=== PATIENT | male | born 1960 | race Caucasian/White ===

== ENCOUNTER 2018-10-26 15:21 | Emergency (ER) | payer OTHER ==
--- NOTE | 2018-10-26 15:59 | ERPHSYRPT ---
- History of Present Illness Time Seen by Provider: 10/26/18 15:45 Historian: patient Exam Limitations: clinical condition Patient Subjective Stated Complaint: abdominal pain x 4 days. no pain on palpation but is constandt. denies vomiting or diarrhea but has had nausea.. fever 2 days ago hx diverticulitis Triage Nursing Assessment: alert and orioented with c/o llq pain x 4 days. denies vomiting. denies urinary sx. abdomen soft no increasing pain on palpation. states was sweating 2 days ago.. has hx diverticulitis and colon resection. Physician History: PATIENT WITH A HISTORY OF DIVERTICULITIS, TYPE 2 DIABETES, MYOCARDIAL INFARCTION WITH STENT INSERTION COMPLAINS OF LEFT LOWER ABDOMINAL PAINS X 1 WEEK , UNSURE OF FEVER OR CHILLS. DENIES NAUSEA, EMESIS, DIARRHEA OR URINARY SYMPTOMS. Timing/Duration: week(s) Activities at Onset: none Quality: cramping Abdominal Pain Onset Location: LLQ Pain Radiation: no radiation Severity of Pain-Max: moderate Severity of Pain-Current: mild Modifying Factors: Improves With: nothing Associated Symptoms: loss of appetite Previous symptoms: same symptoms as today Allergies/Adverse Reactions: Penicillins Allergy (Verified 06/05/15 09:58) Home Medications: ALPRAZolam [Xanax 0.5 mg] 0.5 mg PO QHS 06/05/15 [History] Citalopram Hydrobromide 20 mg* [ceLEXa 20 MG] 20 mg PO DAILY 06/05/15 [ History] Dexlansoprazole [Dexilant] 60 mg PO DAILY 06/05/15 [History] Metoclopramide HCl [Reglan] 10 mg PO BID 06/05/15 [History] Testosterone Cypionate [Depo-Testosterone] 200 mg IM UD 06/05/15 [History] clonazePAM [Klonopin] 1 mg PO BID 06/05/15 [History] - Review of Systems Constitutional: No Fever, No Chills Eyes: No Symptoms Ears, Nose, & Throat: No Symptoms Respiratory: No Symptoms, No Cough, No Dyspnea Cardiac: No Symptoms, No Chest Pain, No Edema, No Syncope Abdominal/Gastrointestinal: Abdominal Pain, No Nausea, No Vomiting, No Diarrhea Genitourinary Symptoms: No Symptoms, No Dysuria Musculoskeletal: No Symptoms, No Back Pain, No Neck Pain Skin: No Symptoms, No Rash Neurological: No Dizziness, No Focal Weakness, No Sensory Changes Psychological: No Symptoms Endocrine: No Symptoms All Other Systems: Reviewed and Negative - Past Medical History Pertinent Past Medical History: Yes Neurological History: No Pertinent History ENT History: No Pertinent History Cardiac History: No Pertinent History Respiratory History: No Pertinent History, Sleep Apnea Endocrine Medical History: No Pertinent History Musculoskeletal History: No Pertinent History GI Medical History: Diverticulitis, GERD History: No Pertinent History Psycho-Social History: Anxiety, Depression Male Reproductive Disorders: No Pertinent History - Past Surgical History Past Surgical History: Yes Neuro Surgical History: No Pertinent History Cardiac: No Pertinent History Respiratory: No Pertinent History Gastrointestinal: Colon Resection, Hernia Repair Genitourinary: No Pertinent History Musculoskeletal: No Pertinent History Male Surgical History: No Pertinent History - Social History Smoking Status: Never smoker Exposure to second hand smoke: No Drug Use: none Patient Lives Alone: No - Nursing Vital Signs Nursing Vital Signs: Initial Vital Signs Temperature 98.3 F 10/26/18 15:34 Pulse Rate 72 10/26/18 15:34 Respiratory Rate 18 10/26/18 15:34 Blood Pressure 140/88 10/26/18 15:34 O2 Sat by Pulse Oximetry 95 10/26/18 15:34 Pain Scale Pain Intensity 7 - Physical Exam General Appearance: no apparent distress, alert Eye Exam: PERRL/EOMI, eyes nml inspection Ears, Nose, Throat Exam: normal ENT inspection, pharynx normal, moist mucous membranes Neck Exam: normal inspection, non-tender, supple, full range of motion Respiratory Exam: normal breath sounds, lungs clear, No respiratory distress Cardiovascular Exam: regular rate/rhythm, normal heart sounds Gastrointestinal/Abdomen Exam: soft, normal bowel sounds, No tenderness (THERE IS MODERATE LLQ TENDERNESS, NO GUARDING OR REBOUND TENDERNESS), No mass Back Exam: normal inspection, normal range of motion, No CVA tenderness, No vertebral tenderness Extremity Exam: normal inspection, normal range of motion, pelvis stable Neurologic Exam: alert, oriented x 3, cooperative, normal mood/affect, nml cerebellar function, sensation nml, No motor deficits Skin Exam: normal color, warm, dry SpO2 Interpretation: normal SpO2: 95 - CT Exams Abdomen/Pelvis CT Interpretation: Tele-radiologist Report (SMALL FAT CONTAINING RIGHT INGUINAL HERNIA INCREASED IN SIZE SINCE 2014, SCATTERED COLONIC DIVERTICULOSIS WITHOUT EVIDENCE OF DIVERTICULITIS) Ordered Tests: Active Orders 24 hr Category Date Time Status IV Insertion STAT Care 10/26/18 15:50 Active ABDOMEN AND PELVIS W CONTRAST [CT] Stat Exams 10/26/18 15:51 Taken BLOOD CULTURE Stat Lab 10/26/18 16:20 Received BMP Stat Lab 10/26/18 16:20 Completed CBC W DIFF Stat Lab 10/26/18 16:20 Completed UA W/RFX UR CULTURE Stat Lab 10/26/18 18:20 Completed Medication Summary Generic Name Dose Route Start Last Admin Trade Name Freq PRN Reason Stop Dose Admin Sodium Chloride 1,000 mls @ 200 mls/hr 10/26/18 16:00 10/26/18 16:51 Sodium Chloride 0.9% 1000 Ml IV 11/25/18 15:59 200 mls/hr .Q5H WILBUR Administration Discontinued Medications Generic Name Dose Route Start Last Admin Trade Name Freq PRN Reason Stop Dose Admin Sodium Chloride 1,000 mls @ 100 mls/hr 10/26/18 16:00 Sodium Chloride 0.9% 1000 Ml IV 11/25/18 15:59 .Q10H WILBUR Lab/Rad Data: Laboratory Result Diagrams 10/26/18 16:20 10/26/18 16:20 Laboratory Results 10/26/18 10/26/18 10/26/18 Range/Units 18:20 16:20 16:20 WBC 6.1 (4.0-10.5) K/mm3 RBC 4.76 (4.1-5.6) M/mm3 Hgb 15.1 (12.5-18.0) gm/dl Hct 44.5 (42-50) % MCV 93.5 (78-100) fl MCH 31.7 (26-32) pg MCHC 33.9 (32-36) g/dl RDW 12.2 (11.5-14.0) % Plt Count 195 (150-450) K/mm3 MPV 10.1 H (6-9.5) fl Gran % 60.1 (36.0-66.0) % Eos # (Auto) 0.12 (0-0.5) Absolute Lymphs (auto) 1.71 (1.0-4.6) Absolute Monos (auto) 0.55 (0.0-1.3) Lymphocytes % 27.9 (24.0-44.0) % Monocytes % 9.0 (0.0-12.0) % Eosinophils % 2.0 (0.00-5.0) % Basophils % 1.0 (0.0-0.4) % Absolute Granulocytes 3.68 (1.4-6.9) Basophils # 0.06 (0-0.4) Sodium 142 (137-145) mmol/L Potassium 3.8 (3.5-5.1) mmol/L Chloride 107 (98-107) mmol/L Carbon Dioxide 28 (22-30) mmol/L Anion Gap 10.5 (5-15) MEQ/L BUN 20 (9-20) mg/dL Creatinine 0.87 (0.66-1.25) mg/dL Estimated GFR > 60.0 ML/MIN Glucose 125 H (74-106) mg/dL Calcium 9.7 (8.4-10.2) mg/dL Urine Color YELLOW (YELLOW) Urine Appearance CLOUDY (CLEAR) Urine pH 8.0 (5-6) Ur Specific [place] 1.011 (1.005-1.025) Urine Protein NEGATIVE (Negative) Urine Ketones NEGATIVE (NEGATIVE) Urine Blood NEGATIVE (0-5) Adams/ul Urine Nitrite NEGATIVE (NEGATIVE) Urine Bilirubin NEGATIVE (NEGATIVE) Urine Urobilinogen NEGATIVE (0-1) mg/dL Ur Leukocyte Esterase NEGATIVE (NEGATIVE) Urine WBC (Auto) NONE SEEN (0-5) /HPF Urine RBC (Auto) NONE SEEN (0-2) /HPF U Epithel Cells (Auto) NONE (FEW) /HPF Urine Bacteria (Auto) NONE SEEN (NEGATIVE) /HPF Amorphous Crystals MANY (NEGATIVE) /HPF Urine Culture Reflexed NO (NO) Urine Glucose NEGATIVE (NEGATIVE) mg/dL - Progress Progress Note: 10/26/18 15:58 IV NORMAL SALINE 200ML/HR, REFUSES ANALGESICS Counseled pt/family regarding: diagnosis, need for follow-up, rad results - Departure Time of Disposition: 18:45 Departure Disposition: Home Clinical Impression: ABDOMINAL PAIN Condition: Stable Critical Care Time: No Referrals: DOCTOR,NO FAMILY [Primary Care Provider] - Additional Instructions: TYLENOL OR MOTRIN NEEDED FOR PAIN. CONSULT YOUR PRIMARY CARE PROVIDER FOR EVALUATION, REFERRAL FOR COLONOSCOPY. RETURN TO EMERGENCY FOR INCREASING PAIN, ONSET OF FEVER, CHILLS OR DIARRHEA.
[2018-10-26] MEDS ORDERED: Sodium Chloride 0.9% 1000 ML 1,000 ML IV SCH ×2 (16:00)
[2018-10-26 16:31] LABS: Basophil (Absolute #) 0.06 (0-0.4); Eosinophil (Absolute #) 0.12 (0-0.5); Granulocyte Absolute (ANC) 3.68 (1.4-6.9); Granulocytes % 60.1 % (36.0-66.0); Hematocrit 44.5 % (42-50); Hemoglobin 15.1 gm/dl (12.5-18.0); Lymphocyte (Absolute #) 1.71 (1.0-4.6); Lymphocytes % 27.9 % (24.0-44.0); Mean Cell Volume 93.5 fl (78-100); Mean Corpuscular Hemoglobin 31.7 pg (26-32); Mean Corpuscular Hgb Concent. 33.9 g/dl (32-36); Mean Platelet Volume 10.1 fl (6-9.5); Monocyte (Absolute #) 0.55 (0.0-1.3); Platelet Count 195 K/mm3 (150-450); Red Blood Count 4.76 M/mm3 (4.1-5.6); Red Cell Distribution Width 12.2 % (11.5-14.0); White Blood Count 6.1 K/mm3 (4.0-10.5)
[2018-10-26 16:44] LABS: ANION GAP 10.5 MEQ/L (5-15); BLOOD UREA NITROGEN 20 mg/dL (9-20); CHLORIDE 107 mmol/L (98-107); Calcium 9.7 mg/dL (8.4-10.2); Carbon Dioxide 28 mmol/L (22-30); Creatinine 1 0.87 mg/dL (0.66-1.25); Glucose 125 mg/dL (74-106); Potassium 3.8 mmol/L (3.5-5.1); SODIUM 142 mmol/L (137-145)
[2018-10-26] MEDS ORDERED: Sodium Chloride 0.9% 1000 ML 1,000 ML ONE (16:49)
[2018-10-26 18:34] LABS: Amourphous Crystal MANY /HPF (NEGATIVE); Appearance CLOUDY (CLEAR); Bacteria NONE SEEN /HPF (NEGATIVE); Bilirubin NEGATIVE (NEGATIVE); Blood NEGATIVE Ery/ul (0-5); Glucose NEGATIVE (NEGATIVE); Ketones NEGATIVE (NEGATIVE); Leukocyte Esterase NEGATIVE (NEGATIVE); Nitrite NEGATIVE (NEGATIVE); Protein,Urine Dip NEGATIVE (Negative); RBC NONE SEEN /HPF (0-2); Specific Gravity 1.011 (1.005-1.025); Urobilinogen NEGATIVE mg/dL (0-1); WBC NONE SEEN /HPF (0-5)
[2018-10-26 19:14] VITALS: BP 132/78; PULSE 87; O2SAT 99
--- NOTE | 2018-10-26 22:21 | XRAY ---
Indication: Abdomen pain 1 week. History diverticulitis. Multiple contiguous axial images obtained through the abdomen and pelvis using 80 cc Isovue 370 contrast only. Comparison: June 02, 2015. Lung bases demonstrates minimal dependent atelectasis. No infiltrate or effusion. Heart is not enlarged. Noncontrasted stomach and bowel loops appear nonobstructed. Stable descending duodenal diverticulum. Normal appendix. Stable left hemicolon diverticulosis without diverticulitis. Intact sigmoid anastomosis. No free fluid/air. Stable hepatic cysts. Remaining liver, gallbladder, pancreas, spleen, adrenal glands, kidneys, ureters, and bladder appear unremarkable. There remains mild aortoiliac calcifications. No AAA or pathological retroperitoneal lymphadenopathy. Osseous structures intact again with mild degenerative changes throughout the spine. Slightly enlarging small fatty right inguinal hernia. Impression: 1. Stable hepatic cysts, duodenal diverticulum, colonic diverticulosis, and hepatic cysts. 2. Slightly enlarging small fatty right inguinal hernia. 3. Remaining CT abdomen/pelvis with contrast exam is negative. Comment: Preliminary interpretation was made by [facility]. No critical discrepancy. CTDI 19.13
== END 2018-10-26 19:16 | disposition home or self-care (01) ==
LOC: ED 15:21
DX: R10.9 Unspecified abdominal pain (principal); G47.30 Sleep apnea, unspecified; K21.9 Gastro-esophageal reflux disease without esophagitis; F41.9 Anxiety disorder, unspecified; F32.9 Major depressive disorder, single episode, unspecified; Z90.49 Acquired absence of other specified parts of digestive tract; E11.9 Type 2 diabetes mellitus without complications; I25.2 Old myocardial infarction
CPT/HCPCS: 36000; 36415; 74177; 80048; 81001; 85025; 87040; 96360; 99284; Q9967

== ENCOUNTER 2018-11-15 09:45 | Day surgery (SDC) | payer OTHER ==
--- NOTE | 2018-11-14 14:30 | HP ---
REPORT DICTATED AND TRANSCRIBED AT [facility] ON 11/13/2018, FAXED TO [facility] ON 11/14/2018. DATE OF SURGERY: 11/15/2018 ADMISSION DIAGNOSIS: Right inguinal hernia. ANTICIPATED PROCEDURE: Right inguinal hernia with mesh. HISTORY OF PRESENT ILLNESS: Patient has moderate-sized symptomatic right inguinal hernia. PAST MEDICAL HISTORY: ALLERGIES: PENICILLIN. MEDICATIONS: Clonazepam, Fenofibrate, paroxetine. PAST SURGICAL HISTORY: Diverticulitis. Hernia surgery. SOCIAL HISTORY: Negative. FAMILY HISTORY: Negative. REVIEW OF SYSTEMS: CVS: Controlled hypertension. PULMONARY: Negative. GI: Per the present illness. : Negative. PHYSICAL EXAMINATION: VITAL SIGNS: Normal. CHEST: Clear. COR: Regular. ABDOMEN: Right inguinal hernia. IMPRESSION: Symptomatic right inguinal hernia. PLAN: Repair.
[~2018-11-15 09:45] MED LIST: CLINDAMYCIN-D5W 900 MG/50 ML*** 900 MG/50 ML BAG IV STA; Lactated Ringers 1,000 ML IV ONE; Lactated Ringers 1,000 ML IV SCH; Sensorcaine 0.25% 10 ML ONE
[2018-11-15] MEDS ORDERED: Zofran 4 MG/2 ML VIAL IV ONE (09:46)
[2018-11-15] MEDS ORDERED: Versed 2 MG/2 ML Injection IV ONE (09:46)
[2018-11-15] MEDS ORDERED: Zemuron 100 MG/10 ML IV ONE (09:46)
[2018-11-15] MEDS ORDERED: Decadron 4 MG INJ IV ONE (09:46)
[2018-11-15] MEDS ORDERED: BRIDION 200MG/2ML IV ONE (09:46)
[2018-11-15] MEDS ORDERED: TORAdol 30 mg Injection IV ONE (09:46)
[2018-11-15] MEDS ORDERED: SUBLIMAZE 250 MCG/5 ML IV ONE (09:46)
[2018-11-15] MEDS ORDERED: DIPRIVAN 200 MG/20 ML IV ONE (09:46)
[2018-11-15] MEDS ORDERED: Lactated Ringers 1,000 ML IV ONE (12:52)
[2018-11-15] MEDS ORDERED: Cleocin Phosphate IV 600 MG/4 ML ONE (14:34)
[2018-11-15] MEDS ORDERED: MORPHINE SULFATE 10 MG/ML ONE (15:50)
[2018-11-15] MEDS ORDERED: SUBLIMAZE 100 MCG/2 ML ONE (15:51)
[2018-11-15] MEDS ORDERED: Zofran 4 MG/2 ML VIAL ONE (15:54)
[2018-11-15 17:11] VITALS: BP 133/86; PULSE 83; O2SAT 92
--- NOTE | 2018-11-16 08:35 | OP ---
SURGERY DATE/TIME: 11/15/2018 1420 PREOPERATIVE DIAGNOSES: 1) Right inguinal hernia. 2) Epigastric pain secondary to grade II/III gastroesophageal reflux disease. 3) Screening colonoscopy demonstrating a previous resection otherwise satisfactory. POSTOPERATIVE DIAGNOSES: 1) Right inguinal hernia. 2) Epigastric pain secondary to grade II/III gastroesophageal reflux disease. 3) Screening colonoscopy demonstrating a previous resection otherwise satisfactory. PROCEDURES: 1) Right inguinal herniorrhaphy with mesh. 2) Colonoscopy complete to cecum for screening. 3) EGD. SURGEON: Guido Bowen M.D. ANESTHESIA: General. COMPLICATIONS: None. CONDITION: Stable. INDICATION: A patient requiring evaluation. DESCRIPTION OF PROCEDURE: Taken to surgery. General anesthetic. Routine prep and drape. Kidney rest was placed. 0.25% Marcaine. Curvilinear incision. Time out had been performed. External oblique opened. A 3 inch indirect hernia sac, 3 inch lipoma. The lipoma tied off with 2-0 Vicryl. The hernia sac tied off with 0 Prolene. There was no sliding component. Floor reinforced with a 1x4 already pre-holed mesh which was placed and secured with 0 Prolene throughout. The internal ring was one clamp tight. Repair looked excellent. The ilioinguinal nerve was kept with cord and the iliohypogastric was left on the floor. The external oblique closed with 0 Vicryl. Neville fascia closed with 2-0 Vicryl. Skin closed with 4-0 Vicryl. Steri-Strips applied. Sterile dressing applied. The gastroscope was placed. The esophagus normal down to gastroesophageal junction. There was a rim of esophagitis grade II and there was a little bit of slightly pronounced streaks at the upper edge. Fundus, body, antrum was normal. Pylorus normal. Duodenal bulb normal. Second portion normal. Scope withdrawn looped upon itself. No hiatal hernia. Scope withdrawn. IMPRESSION: Grade II/III gastroesophageal reflux disease. Anal digital examination satisfactory. Scope introduced. The anastomosis was at 24 cm. It was [id number]. It was normal. Scope advanced up to the cecum. Base of cecum, trifurcation, ileocecal valve and appendiceal orifice normal. Ascending, hepatic, transverse there was some scattered diverticulum in the descending colon and towards the anastomosis. Nothing symptomatic. No mucosal lesions were noted. The patient tolerated the procedure satisfactorily. PLAN: Follow up in five years on the colon.
== END 2018-11-15 17:30 | disposition home or self-care (01) ==
LOC: SDC 09:45
PROVIDERS: ATTEND Surgery
DX: K40.90 Unilateral inguinal hernia, without obstruction or gangrene, not specified as recurrent (principal); K21.9 Gastro-esophageal reflux disease without esophagitis; Z12.11 Encounter for screening for malignant neoplasm of colon; R10.13 Epigastric pain; I10 Essential (primary) hypertension
CPT/HCPCS: J1100; J1885; J2250; J2270; J2405; J2704; J3010

== ENCOUNTER 2019-08-22 09:10 | Day surgery (SDC) | payer OTHER ==
--- NOTE | 2019-08-22 07:40 | HP ---
AMENDED REPORT: DATE OF SURGERY: 08/22/2019 HISTORY OF PRESENT ILLNESS: Lesion left neck, mid neck and mid back. ANTICIPATED PROCEDURE: Excision of these three lesions. PAST MEDICAL HISTORY: ALLERGIES: MULTIPLE. MEDICATIONS: Multiple. PAST SURGICAL HISTORY: Hernia surgery. Diverticulitis. SOCIAL HISTORY: Negative. FAMILY HISTORY: Negative. REVIEW OF SYSTEMS: CVS: Positive hypertension. PULMONARY: Negative. PHYSICAL EXAMINATION: VITAL SIGNS: Normal. CHEST: Clear. COR: Regular. IMPRESSION: Three atypical lesions. PLAN: Excision.
[~2019-08-22 09:10] MED LIST changes: -CLINDAMYCIN-D5W 900 MG/50 ML*** 900 MG/50 ML BAG IV STA; -Lactated Ringers 1,000 ML IV ONE; -Lactated Ringers 1,000 ML IV SCH; -Sensorcaine 0.25% 10 ML ONE; +Sodium Chloride 0.9% 1000 ML 1,000 ML IV SCH; +Sodium Chloride 0.9% 1000 ML 1,000 ML ONE; +XYLOCAINE 1% HCL 20 ML MDV ONE
[2019-08-22] MEDS ORDERED: BACIGUENT 30 GM ONE (12:55)
[2019-08-22 13:41] VITALS: O2SAT 94
[2019-08-22 13:44] VITALS: BP 151/96; PULSE 65
--- NOTE | 2019-08-22 14:41 | OP ---
SURGERY DATE/TIME: 08/22/2019 1232 PREOPERATIVE DIAGNOSIS: A 1 cm cyst posterior neck, 1 cm cyst upper mid back, 5 mm skin tag lesion left neck. POSTOPERATIVE DIAGNOSIS: A 1 cm cyst posterior neck, 1 cm cyst upper mid back, 5 mm skin tag lesion left neck. PROCEDURE: Excision and closure of these three lesions. SURGEON: Guido Bowen M.D. ANESTHESIA: Local. COMPLICATIONS: None. CONDITION: Stable. INDICATION: A patient requiring removal of these three lesions. They were marked preoperatively. DESCRIPTION OF PROCEDURE: Taken to surgery. Routine prep and drape. Time out performed. Elliptical excision of the neck lesion sebaceous cyst, elliptical excision of the upper back lesion sebaceous cyst and elliptical excision of the skin tag/skin lesion left lower neck. Closed with various sutures. Sterile dressing and ointment applied. The patient tolerated the procedure satisfactorily. Return to the office in two weeks.
== END 2019-08-22 13:36 | disposition home or self-care (01) ==
LOC: SDC 09:10
PROVIDERS: ATTEND Surgery
DX: L72.0 Epidermal cyst (principal); L73.9 Follicular disorder, unspecified; L72.8 Other follicular cysts of the skin and subcutaneous tissue; I10 Essential (primary) hypertension; Z79.899 Other long term (current) drug therapy
CPT/HCPCS: 88304; 88305; A9270-GY

== ENCOUNTER 2020-02-06 07:40 | Day surgery (SDC) | payer OTHER ==
--- NOTE | 2020-01-31 15:29 | HP ---
DATE OF SURGERY: 02/06/2020 HISTORY OF PRESENT ILLNESS: The patient is a 59 year-old male who presented to the office with complaints of one month history of left-sided abdominal pain and nausea. Reports going to his primary care physician and taking some antibiotics. Last colonoscopy was about a year ago. He had some scattered diverticulum and descending colon diverticulum. It was recommended that he follow up in five years for next colonoscopy. Today, he denies any rectal bleeding or change in bowel habits. PAST MEDICAL HISTORY: Depression. Reflux. Anxiety. Arthritis. PAST SURGICAL HISTORY: Colon resection for diverticulitis. Excision of skin lesions. MEDICATIONS: Clonazepam. Paroxetine. Tylenol. ALLERGIES: PENICILLIN. TAPE. LATEX. FAMILY HISTORY: Negative. SOCIAL HISTORY: Negative. REVIEW OF SYSTEMS: CONSTITUTIONAL: Denies fever or chills. CHEST: Denies shortness of breath or cough. CVS: Denies chest pain. ABDOMEN: Reports abdominal pain. Denies nausea, vomiting, rectal bleeding, diarrhea or constipation. : Denies dysuria or hematuria. EXTREMITIES: Denies swelling. PHYSICAL EXAMINATION: GENERAL: No acute distress. HEENT: No jaundice. Oral mucosa moist. NECK: No JVD. CHEST: Nonlabored. No shortness of breath. ABDOMEN: Soft, mildly tender in the lower quadrant, nondistended. EXTREMITIES: No edema. INTEGUMENTARY: Warm, pink, no rash. NEUROLOGIC: Awake, alert, oriented. PSYCHIATRIC: Appropriate mood and affect. ASSESSMENT: The patient has had history of diverticulitis with resection. We did do a CT scan of the abdomen and pelvis. It was negative for any concerning active inflammation. We will proceed with colonoscopy for history of diverticulitis. PLAN: Colonoscopy with Dr. Guido Bowen. As dictated by Chelsea Mancini NP.
[2020-02-06] MEDS ORDERED: Lactated Ringers 1,000 ML IV ONE (08:04)
[2020-02-06] MEDS ORDERED: Lactated Ringers 1,000 ML IV SCH (08:30)
[2020-02-06] MEDS ORDERED: DIPRIVAN 200 MG/20 ML IV ONE (10:49)
[2020-02-06 13:01] VITALS: O2SAT 97
[2020-02-06 13:04] VITALS: BP 139/79; PULSE 60
--- NOTE | 2020-02-06 14:00 | OP ---
SURGERY DATE/TIME: 02/06/2020 1034 PREOPERATIVE DIAGNOSIS: Lower abdominal discomfort. No recent endoscopic exam. Previous history of diverticulosis and resection. POSTOPERATIVE DIAGNOSIS: Lower abdominal discomfort. No recent endoscopic exam. Previous history of diverticulosis and resection. PROCEDURE: Colonoscopy complete to cecum. SURGEON: Guido Bowen M.D. ANESTHESIA: MAC. COMPLICATIONS: None. CONDITION: Stable. FINDINGS: 1) Moderate residual diverticulosis. 2) Normal anastomosis. INDICATION: The patient has some lower abdominal discomfort. He did have a CT scan show diverticulosis. He has not had recent endoscopic examination. DESCRIPTION OF PROCEDURE: He is taken to endoscopy. Left lateral decubitus position. MAC sedation provided. Anal digital examination satisfactory. Prostate satisfactory. Rectum satisfactory. Prostate visually satisfactory, smooth, slightly elevated. The resection site anastomosis normal. There was minimal blind end. The functional end cannulated. There was moderate residual diverticulosis of the descending colon. Transverse colon was normal. Hepatic flexure normal. Ascending colon normal. Ileocecal valve, base of the cecum and the appendiceal orifice all normal. A very good visualization was present and excellent prep was present on circumferential withdrawal. No mucosal lesions were noted. PLAN: Follow up in five years. I think his residual diverticulosis clearly accounts for his intermittent abdominal discomfort and he does have a negative CT of the abdomen otherwise.
== END 2020-02-06 12:00 | disposition home or self-care (01) ==
LOC: SDC 07:40
PROVIDERS: ATTEND Surgery
DX: K57.30 Diverticulosis of large intestine without perforation or abscess without bleeding (principal); R11.0 Nausea; Z90.49 Acquired absence of other specified parts of digestive tract; Z87.19 Personal history of other diseases of the digestive system; Z79.899 Other long term (current) drug therapy
CPT/HCPCS: J2704

== ENCOUNTER 2022-03-24 06:33 | Day surgery (SDC) | payer OTHER ==
--- NOTE | 2022-03-21 13:53 | HP ---
DATE OF SURGERY: 03/24/2022 HISTORY OF PRESENT ILLNESS: The patient is a 61-year-old male presents with complaints of dysphagia. He reports that it is cervical. He states that he has pills that get stuck. He states he has lots of sinus trouble with drainage. His last EGD was July 2019 when he had grade 2 gastroesophageal reflux disease. He reports that his ENT, Dr. Nella Gonzalez, did a nose scope that I believe was satisfactory. PAST MEDICAL HISTORY: Depression, anxiety, gastroesophageal reflux disease, hypertension. PAST SURGICAL HISTORY: Sigmoid colectomy. Bilateral inguinal hernia repair. ALLERGIES: PENICILLIN. LATEX. MEDICATIONS: Venlafaxine, amlodipine, Zyrtec, omeprazole, trazodone, alprazolam, Pepcid, ibuprofen, Tylenol, Trelegy. FAMILY HISTORY: None reported. SOCIAL HISTORY: None reported. REVIEW OF SYSTEMS: CONSTITUTIONAL: Denies fever or chills. CHEST: Denies shortness of breath. CVS: Denies chest pain. ABDOMEN: Denies abdominal pain. PHYSICAL EXAMINATION: GENERAL: No acute distress. CHEST: Nonlabored. No shortness of breath. CVS: Regular rate and rhythm. ABDOMEN: Soft. IMPRESSION: Dysphagia. PLAN: EGD with with Dr. Guido Bowen. As dictated by Chelsea Mancini NP.
[2022-03-24] MEDS ORDERED: Lactated Ringers 1,000 ML IV SCH (07:30)
[2022-03-24] MEDS ORDERED: DIPRIVAN 200 MG/20 ML IV ONE ×2 (09:20→09:30)
[2022-03-24 10:09] VITALS: BP 119/78; PULSE 66; O2SAT 96
--- NOTE | 2022-03-24 11:23 | OP ---
SURGERY DATE/TIME: 03/24/2022 0919 PREOPERATIVE DIAGNOSIS: Recent dysphagia. POSTOPERATIVE DIAGNOSES: 1) The patient has a wisp of esophagitis grade II. It probably has been exacerbated here in the last couple of months but is looking quite reasonable at this time. 2) A 1 inch hiatal hernia. PROCEDURE: EGD. SURGEON: Guido Bowen M.D. ENGINEERING SCIENTIST: Matthew Sanchez M.D. [facility]. ANESTHESIA: MAC. COMPLICATIONS: None. CONDITION: Stable. INDICATION: The patient has dysphagia needing upper GI followed by esophagogram. He is having trouble swallowing pills. He is subsequently taking his pills with applesauce and is doing much better. He is on two medications. He is basically feeling good at this time. DESCRIPTION OF PROCEDURE: He was taken to endoscopy. Left lateral decubitus position. Pharyngoesophageal junction cannulated. Esophagus normal down to gastroesophageal junction. There was a 1 cm rim of very light esophagitis. There was a 1 inch hiatal hernia. Fundus, body, antrum normal. Pylorus normal. Keyhole view normal. Duodenal bulb normal. Second portion normal. The scope looped upon itself. A 1 inch hiatal hernia. Scope withdrawn. There was reasonable motility in the esophagus. There was no suggestion of any blockage. The hiatal hernia was small. The reflux was under control. IMPRESSION: I believe the whole last couple of months has been consistent with reflux. It probably just got a little exacerbated. It did get calmed down. He is doing better. I would not suggest any changes in his regimen. I would continue to make sure not eating within three or four hours of laying down. He can return to the office PRN.
== END 2022-03-24 10:15 | disposition home or self-care (01) ==
LOC: SDC 06:33
PROVIDERS: ATTEND Surgery
DX: K20.90 Esophagitis, unspecified without bleeding (principal); R13.10 Dysphagia, unspecified; K44.9 Diaphragmatic hernia without obstruction or gangrene
CPT/HCPCS: J2704

== ENCOUNTER 2024-02-22 07:01 | Day surgery (SDC) | payer MEDICARE ==
--- NOTE | 2024-02-21 09:10 | HP ---
HISTORY AND PHYSICAL HISTORY OF PRESENT ILLNESS: Patient is a 63-year-old male who presents with complaints of constipation. He has a lot of left lower quadrant pain. He is on MiraLAX. He just now started to have some loose stools with that. He has a history of colon resection for diverticulitis. His last colonoscopy was in 2019 and was fine. He is complaining of some bad acid reflux and regurgitation. He is also complaining of some burning in his anus after a bowel movement. PAST MEDICAL HISTORY: Hypertension, hyperlipidemia, GERD. HOME MEDICATIONS: Multivitamin, omeprazole, venlafaxine, atorvastatin, amlodipine, Zyrtec. ALLERGIES: None reported. PAST SURGICAL HISTORY: Colon resection, lipoma excision, cholecystectomy. SOCIAL HISTORY: Daily alcohol. FAMILY HISTORY: Breast cancer. REVIEW OF SYSTEMS: CONSTITUTIONAL: Denies fever or chills. CHEST: Denies shortness of breath or any chest pain. ABDOMEN: Reports left lower quadrant pain. PHYSICAL EXAMINATION: GENERAL: No acute distress. CVS: Regular rate and rhythm. RESPIRATORY: Nonlabored. No shortness of breath. ABDOMEN: Soft. ASSESSMENT: Heartburn, regurgitation, change in bowel habits, constipation. PLAN: EGD and colonoscopy with Dr. Guido Bowen. This report was dictated for Dr. Bowen by Chelsea Mancini NP.
[2024-02-22] MEDS ORDERED: Lactated Ringers 1,000 ML IV ONE (07:21)
[2024-02-22] MEDS: Lactated Ringers 1,000 ML IV SCH (07:28)
[2024-02-22] MEDS ORDERED: DIPRIVAN 200 MG/20 ML IV ONE (10:15)
[2024-02-22] MEDS ORDERED: Xylocaine-Mpf 2% 5 Ml Vial ONE (10:15)
[2024-02-22] MEDS ORDERED: Versed 2 MG/2 ML Injection ONE (10:16)
[2024-02-22 11:15] VITALS: RESP 18
[2024-02-22 11:25] VITALS: BP 110/77; PULSE 72; TEMP 98.1; O2SAT 95
--- NOTE | 2024-02-22 17:57 | OP ---
SURGERY DATE/TIME: 02/22/2024 [id number] PREOPERATIVE DIAGNOSIS: 1) Recurrent and persistent heartburn despite being on 2 medications, omeprazole and Pepcid. 2) Some lower abdominal discomfort. 3) Previous history of polyps. The patient is due for a colonoscopic exam. PROCEDURES: 1) Esophagogastroduodenoscopy. 2) Colonoscopy to cecum. SURGEON: Guido Bowen MD ANESTHESIA: General. COMPLICATIONS: None. CONDITION: Stable. DESCRIPTION OF PROCEDURE AND FINDINGS: The patient was taken to the endoscopy suite. Left lateral decubitus position. Scope introduced. Grade 2/4 GERD, a 1-inch hiatal hernia. Fundus, body, antrum normal. Pylorus normal. Duodenal bulb normal. Second portion normal. Scope looped on itself. A 1-inch hiatal hernia. Scope withdrawn. Anal digital examination satisfactory. Scope was advanced to the cecum. Base of the cecum satisfactory, ileocecal valve and appendiceal area. Circumferentially withdrawn. No mucosal lesions were noted. The patient tolerated the procedure satisfactory. The old anastomosis was normal. There was a little bit of scattered diverticula near the anastomosis.
--- NOTE | 2024-03-02 17:29 | OP ---
SURGERY DATE/TIME: 02/22/2024 6847 [id number] PREOPERATIVE DIAGNOSES: Five-year followup C-scope, epigastric pain. PROCEDURE: 1) Esophagogastroduodenoscopy, 1-inch hiatal hernia, grade 2/4 gastroesophageal reflux disease. 2) Colonoscopic examination of the cecum. Moderate sigmoid diverticulosis, otherwise negative. SURGEON: Guido Bowen MD. ANESTHESIA: General. COMPLICATIONS: None. CONDITION: Stable. DESCRIPTION OF PROCEDURE AND FINDINGS: The patient was brought to endoscopy and presents for 5-year scope and evaluation of epigastric discomfort. Scope introduced. Pharyngoesophageal junction normal. Esophagus normal down to EG junction. There was a 1-inch hiatal hernia. There was grade 2/4 GERD. Fundus, body, and antrum normal. Pylorus normal. Duodenal bulb normal. Second portion normal. Scope withdrawn and looped on itself. One-inch hiatal hernia. Anal digital examination satisfactory tone. Scope advanced to the cecum. Base of the cecum, ileocecal valve, and appendiceal orifice normal. Ascending, hepatic, transverse, splenic, descending, sigmoid, rectum, anus normal. Moderate sigmoid diverticulosis. PLAN: Follow up in 5 years.
== END 2024-02-22 11:30 | disposition home or self-care (01) ==
LOC: SDC 07:01
PROVIDERS: ATTEND Surgery
DX: Z09 Encounter for follow-up examination after completed treatment for conditions other than malignant neoplasm (principal); Z86.010 Personal history of colon polyps; R10.30 Lower abdominal pain, unspecified; R12 Heartburn; K21.9 Gastro-esophageal reflux disease without esophagitis; K44.9 Diaphragmatic hernia without obstruction or gangrene; K57.30 Diverticulosis of large intestine without perforation or abscess without bleeding
CPT/HCPCS: 93005; J2250; J2704